=== PATIENT | male | born 1955 | race Caucasian/White ===

== ENCOUNTER 2016-04-21 20:45 | Day surgery (SDC) | payer BC, OTHER ==
[2016-04-14 11:50] VITALS: BMI 43.7
--- NOTE | 2016-04-21 12:34 | XR ---
EXAMINATION TYPE: XR KUB DATE OF EXAM ORDERED: 04/21/2016 12:29 PM HISTORY: Right-sided kidney stone. COMPARISON: Previous study dated 03/18/2016. FINDINGS: There are bilateral double-J stents in place, unchanged in appearance. The patient's distal left ureteric calculus is no longer visualized. There are very faint calcificati ons overlying the mid and lower poles of the left kidney. These are approximately 5 in number. The la rgest measures 3.6 mm. No definite right-sided calculi are seen. No definite right-sided ureteric akiko culi visualized. IMPRESSION: 1. LEFT-SIDED NEPHROLITHIASIS. 2. THE PATIENT'S LEFT-SIDED URETERIC CALCULUS IS NO LONGER VISUALIZED.
--- NOTE | 2016-04-21 14:10 | P.HPADDEND ---
H&P Addendum H&P Addendum Date: 04/21/16 The patient has bilateral ureteral stents. The KUB x-ray suggests the presence of residual left lower pole renal calculi. I intend to remove both ureteral stents, and to perform right ureteroscopy. Any residual right-sided calculi will be removed. Consideration will also be given to removing residual left renal calculus fragments. It may be necessary to replace one or both ureteral stents.
[2016-04-21 19:06] VITALS: RESP 16; TEMP 97.4
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
[2016-04-21 20:31] VITALS: BP 130/80; PULSE 71
[~2016-04-21 20:45] MED LIST: CLINDAMYCIN 150 MG/ML 6 ML VIAL ONE; CLINDAMYCIN 900 MG in DEXTROSE 5% IN WATER 50 ML IVPB ONE; DEXTROSE 5% IN WATER 50 ML BAG ONE; ESMOLOL 100 MG/10 ML VIAL ONE; HYDROmorphone (PF) 1 MG/ML ONE; HYDROmorphone 1 MG/ML 1 ML SYRINGE IVP PRN; LABETALOL 5 MG/ML VIAL MDV ONE; LACTATED RINGERS 1,000 ML IV ONE; LACTATED RINGERS 1,000 ML IV SCH; LIDOCAINE 1% 20 ML VIAL (10MG/ML) FOR IV START INTRADERMA ONE; LIDOCAINE 1% 20 ML VIAL (10MG/ML) FOR IV START INTRADERMA PRN; LIDOCAINE 1% INJ 10MG/ML (20 ML MDV) ONE; METOPROLOL TARTRATE 5 MG/5 ML VIAL IVP ONE; MIDAZOLAM 2 MG/2 ML VIAL IV PRN; MIDAZOLAM 2 MG/2 ML VIAL ONE; ONDANSETRON 4 MG/2 ML VIAL IVP PRN; PHENYLEPHRINE-0.9% NACL SYG 1 MG/10 ML SYRINGE ONE; PROPOFOL 10 MG/ML 20 ML VIAL IV ONE; SUCCINYLCHOLINE CHLORIDE 100 MG/5 ML SYR IV ONE; ePHEDrine 50 MG/ML 1 ML AMP ONE; fentaNYL (PF) 50 MCG/ML 2 ML AMP ONE
--- NOTE | 2016-04-22 08:30 | FL ---
EXAMINATION TYPE: FL guidance operating room DATE OF EXAM: 04/21/2016 6:49 PM COMPARISON: NONE HISTORY: Right ureteral stones Fluoroscopy support supplied to the referring clinician. See dictated report from urology, 54 second s fluoroscopy time supplied, intraoperative C-arm image documents the procedure
== END 2016-04-21 21:00 | disposition home or self-care (01) ==
LOC: OR 20:45
PROVIDERS: ATTEND Urology
DX: N13.2 Hydronephrosis with renal and ureteral calculous obstruction (principal); I10 Essential (primary) hypertension; E78.5 Hyperlipidemia, unspecified; K21.9 Gastro-esophageal reflux disease without esophagitis; Z88.0 Allergy status to penicillin; Z88.2 Allergy status to sulfonamides; Z88.8 Allergy status to other drugs, medicaments and biological substances; Z79.01 Long term (current) use of anticoagulants; Z79.891 Long term (current) use of opiate analgesic; Z79.899 Other long term (current) drug therapy
CPT/HCPCS: 52356; 74000; C1769; C1758; J2250; J2405; J2001; J3010; J1170; J2370; J0330; J2704